=== PATIENT | female | born 1985 | race Caucasian/White ===

== ENCOUNTER 2017-08-06 13:37 | Emergency (ER) | payer BC ==
[~2017-08-06] VITALS: Ht 167.6 cm; Wt 144.2 kg
[~2017-08-06 13:37] MED LIST: ADVAIR HFA120 INHALA IH; ALBUTEROL SULF8.5 GM IH; BUTALB-APAP-CA1 EACH PO; DOCUSATE SODIU100 MG PO; ENDOCET 5-3251 EACH PO; ENOXAPARIN150 MG/1 M SC; FLOVENT 11120 INHALA IH; FLOVENT 22120 INHALA IH; FOLIC ACID1 MG PO; GLYBURIDE2.5 MG PO; GUMMI BEAR MUL1 EACH PO; HEPARIN SO5000 UNITS SC; HEPARIN SO5000 UNITS SQ; HUMULIN N100 UNITS/ SC; IBUPROFEN800 MG PO; K-DUR20 MEQ PO; KEFLEX500 MG PO; KEPPRA1000 MG PO; KEPPRA500 MG PO; LABETALOL HCL200 MG PO; LEVETIRACETAM500 MG PO; LOVENOX40 MG/0.4 SC; METFORMIN HCL1000 MG PO; MONTELUKAST SOD10 MG PO; NOVOLIN N100 UNITS/ SC; NOVOLOG 10100 UNITS/ SC; NOVOLOG PE100 UNITS/ SC; PREDNISONE10 MG PO; PREDNISONE20 MG PO; PREDNISONE50 MG PO; PROCARDIA XL30 MG PO; PROVENTIL,2.5 MG/3 M IH; THEOPHYLLINE A300 M1 PO; VENTOLIN HFA18 GM IH
[2017-08-06 16:38] LABS: HEMATOCRIT 31.4 % (36.0-46.0); HEMOGLOBIN 10.3 G/DL (11.9-15.5); MCH 27.5 PG (29.0-34.0); MCHC 32.8 G/DL (30.0-36.0); MCV 83.7 FL (83-99); PLATELET COUNT 223 K/uL (156-360); RBC DIS.WIDTH-CV 12.7 % (11.8-14.6); RBC DIS.WIDTH-SD 38.9 % (39-53); RED BLOOD COUNT 3.75 M/uL (3.80-5.20); WHITE BLOOD COUNT 12.9 K/uL (4.1-10.2)
[2017-08-06 16:45] LABS: INTER. NORMALIZED RATIO 1.1
[2017-08-06 16:48] LABS: PTT 31.3 SEC (25-37)
[2017-08-06 16:51] LABS: ALBUMIN 3.2 g/dL (3.2-4.8)
[2017-08-06 16:52] LABS: CHLORIDE 104 mEq/L (99-109); POTASSIUM 4.1 mEq/L (3.7-5.4); SODIUM 141 mEq/L (136-147)
[2017-08-06 16:54] LABS: GLUCOSE 89 mg/dL (70-99); TOTAL PROTEIN 6.6 g/dL (6.4-8.3)
[2017-08-06 16:56] LABS: TOTAL BILIRUBIN 0.2 mg/dL (0.0-1.0)
[2017-08-06 16:57] LABS: ALKALINE PHOSPHATASE 148 IU/L (3-129)
[2017-08-06 16:58] LABS: CREATININE 0.7 mg/dL (0.6-1.3); GFR ESTIMATE (CALCULATED) > 59 mL/min/
[2017-08-06 16:59] LABS: AST (GOT) 13 IU/L (2-34); UREA NITROGEN (BUN) 16 mg/dL (9-23)
[2017-08-06 17:01] LABS: ALT (GPT) 21 IU/L (3-49)
[2017-08-06] MEDS ORDERED: NORCO 5/3251 TABLET PO (19:19)
[2017-08-06 21:36] VITALS: BP 129/79
== END 2017-08-06 21:37 | disposition home or self-care (01) ==
LOC: EME 13:37
PROVIDERS: Emergency Medicine Emergency Medical Services
DX: M54.5 Low back pain (principal); Z98.890 Other specified postprocedural states; M51.37 Other intervertebral disc degeneration, lumbosacral region; Z86.718 Personal history of other venous thrombosis and embolism; Z88.8 Allergy status to other drugs, medicaments and biological substances; Z91.010 Allergy to peanuts; Z91.018 Allergy to other foods
CPT/HCPCS: 72148; 80053; 85027; 85610; 85730; 99281; 99284